=== PATIENT | male | born 1965 | race Caucasian/White ===

== ENCOUNTER 2024-04-29 04:11 | Day surgery (SDC) | payer OTHER, MEDICARE ==
[2024-04-27 12:49] VITALS: BMI 29.4
[2024-04-29] MEDS ORDERED: ONDANSETRON 4 MG/2 ML VIAL ONE (07:54)
[2024-04-29] MEDS ORDERED: DEXAMETHASONE SOD PHOSPHATE 4 MG/1 ML VIAL ONE (07:54)
[2024-04-29] MEDS ORDERED: MIDAZOLAM HCL 2 MG/2 ML SINGLE DOSE VIAL ONE (07:55)
[2024-04-29] MEDS: ceFAZolin SODIUM 1 GM VIAL IVPB ONE (08:10)
[2024-04-29] MEDS: LIDOCAINE HCL/PF 2% SDV 5ML VIAL INF ONE ×2 (08:18)
[2024-04-29] MEDS: LIDOCAINE 1% P/F 10 MG/ML VIAL INF ONE ×3 (08:18)
[2024-04-29] MEDS ORDERED: ceFAZolin SODIUM 1 GM VIAL ONE (08:29)
[2024-04-29] MEDS ORDERED: ACETAMINOPHEN 500 MG TABLET (FP) PO PRN (09:05)
[2024-04-29 09:30] VITALS: RESP 16
[2024-04-29 10:06] VITALS: BP 125/70; PULSE 62; TEMP 97.8
== END 2024-04-29 10:18 | disposition home or self-care (01) ==
LOC: JASU-SURG 04:11
PROVIDERS: ATTEND Pain Medicine Pain Medicine
PROC: 00HV3MZ Insertion of Neurostimulator Lead into Spinal Cord, Percutaneous Approach (ICD-10-PCS; principal; 2024-04-29 09:15)
DX: G89.4 Chronic pain syndrome (principal); M96.1 Postlaminectomy syndrome, not elsewhere classified; M54.16 Radiculopathy, lumbar region; G62.89 Other specified polyneuropathies
CPT/HCPCS: 63650; C1897; 76000-TC-FY; 82010; 82962

== ENCOUNTER 2024-08-12 05:18 | Day surgery (SDC) | payer OTHER, MEDICARE ==
[2024-08-10 12:10] VITALS: BMI 28.7
[2024-08-12] MEDS ORDERED: GENTAMICIN SO4 80 MG/2 ML VIAL ONE (12:18)
[2024-08-12] MEDS ORDERED: LIDOCAINE HCL/PF 2% SDV 5ML VIAL ONE (12:19)
[2024-08-12] MEDS ORDERED: LIDOCAINE HCL/PF 1% SDV 5ML VIAL ONE (12:19)
[2024-08-12] MEDS ORDERED: LACTATED RINGERS SOLUTION 1,000 ML IV SCH (12:30)
[2024-08-12] MEDS ORDERED: ONDANSETRON 4 MG/2 ML VIAL IVPUSH PRN (12:30)
[2024-08-12] MEDS ORDERED: oxyCODONE HCL 5 MG TABLET PO PRN (12:30)
[2024-08-12 12:57] VITALS: RESP 18
[2024-08-12] MEDS ORDERED: MIDAZOLAM HCL 2 MG/2 ML SINGLE DOSE VIAL ONE (13:49)
[2024-08-12] MEDS ORDERED: ONDANSETRON 4 MG/2 ML VIAL ONE (13:49)
[2024-08-12] MEDS ORDERED: ceFAZolin SODIUM 1 GM VIAL ONE (13:53)
[2024-08-12] MEDS: LIDOCAINE HCL 1% PRESERVATIVE FREE - 30ML VIAL IJ ONE (14:30)
[2024-08-12] MEDS ORDERED: PROPOFOL 20 ML ONE (15:15)
[2024-08-12] MEDS: LIDOCAINE 1%/EPI 1:100000 (20 ML MULTI DOSE VIAL) IJ ONE (15:23)
[2024-08-12] MEDS: ACETAMINOPHEN 500 MG TABLET (FP) PO PRN (17:00)
[2024-08-12] MEDS ORDERED: ACETAMINOPHEN 500 MG TABLET (FP) ONE (17:01)
[2024-08-12 18:32] VITALS: BP 124/63; PULSE 59; TEMP 97.5
== END 2024-08-12 18:30 | disposition home or self-care (01) ==
LOC: JASU-SURG 05:18
PROVIDERS: ATTEND Pain Medicine Pain Medicine
PROC: 00HU3MZ Insertion of Neurostimulator Lead into Spinal Canal, Percutaneous Approach (ICD-10-PCS; 2024-08-12)
PROC: 0JH Subcutaneous Tissue and Fascia, Insertion (ICD-10-PCS; principal; 2024-08-12 14:15)
DX: M96.1 Postlaminectomy syndrome, not elsewhere classified (principal); G89.4 Chronic pain syndrome; M48.061 Spinal stenosis, lumbar region without neurogenic claudication; M54.16 Radiculopathy, lumbar region
CPT/HCPCS: 63650; 63685; C1778; C1826; L8679; 76000-TC-FY; 82962; C1767